=== PATIENT | female | born 1995 | race Caucasian/White ===

== ENCOUNTER 2018-07-07 20:18 | Emergency (ER) | payer OTHER ==
[~2018-07-07] VITALS: Ht 167.6 cm; Wt 113.4 kg
[2018-07-08] MEDS ORDERED: PHENERGAN25 MG PO (01:48)
[2018-07-08] MEDS ORDERED: LEVSIN/SL0.125 MG PO (01:48)
[2018-07-08] MEDS ORDERED: PEPCID AC20 MG PO (01:48)
== END 2018-07-08 02:14 ==
LOC: ER 20:18
DX: K29.70 Gastritis, unspecified, without bleeding (principal)

== ENCOUNTER → 2019-01-24 | Emergency (ER) | payer OTHER ==
[~2019-01-24] VITALS: Ht 167.6 cm; Wt 102.1 kg
[~2019-01-24] MED LIST: LEVSIN/SL0.125 MG PO; PEPCID AC20 MG PO; PHENERGAN25 MG PO
== END | disposition home or self-care (01) ==
LOC: ER 23:00
DX: J11.1 Influenza due to unidentified influenza virus with other respiratory manifestations (principal)

== ENCOUNTER 2020-01-21 18:14 | Emergency (ER) | payer OTHER ==
[~2020-01-21] VITALS: Ht 167.6 cm; Wt 111.1 kg
[2020-01-21] MEDS ORDERED: FOLIC ACID20 MG (18:42)
[2020-01-21] MEDS ORDERED: PRENATAL 19 TA1 EACH (18:42)
== END 2020-01-21 23:48 | disposition home or self-care (01) ==
LOC: ER 18:14
DX: O20.8 Other hemorrhage in early pregnancy (principal); Z3A.20 20 weeks gestation of pregnancy